=== PATIENT | female | born 1975 | race American Indian/Alaskan Native ===

== ENCOUNTER 2017-05-07 19:46 | Emergency (ER) | payer OTHER ==
--- NOTE | 2017-05-07 20:13 | EDM.PDOC ---
ED HPI GENERAL MEDICAL PROBLEM - General Chief Complaint: Chest Pain Stated Complaint: CHEST PAINS, [id number] Time Seen by Provider: 05/07/17 20:10 Source of Information: Reports: Patient History Limitations: Reports: No Limitations - History of Present Illness INITIAL COMMENTS - FREE TEXT/NARRATIVE: onset left CP with occ SOB ~ 1 week ago then went away then came back few days ago and not going away. described as feeling uncomfortable and something not right. Left Chest Pain Score (Numeric/FACES): 4 - Related Data Allergies Allergy/AdvReac Type Severity Reaction Status Date / Time latex Allergy Hives Verified 05/07/17 20:08 Home Meds: Home Meds . [No Known Home Meds] 08/22/14 [History] Past Medical History - Past Health History Medical/Surgical History: Denies Medical/Surgical History Other OB/BYN History: 4 CS Psychiatric History: Reports: Anxiety - Past Surgical History GI Surgical History: Reports: Hernia, Abdominal, Hernia Repair/Other Other GI Surgeries/Procedures: 2 hernia repair Social & Family History - Tobacco Use Smoking Status *Q: Current Some Day Smoker Years of Tobacco use: 10 Packs/Tins Daily: 1 Used Tobacco, but Quit: No Second Hand Smoke Exposure: Yes - Caffeine Use Caffeine Use: Reports: Coffee, Soda - Alcohol Use Days Per Week of Alcohol Use: 0 - Recreational Drug Use Recreational Drug Use: No - Living Situation & Occupation Living situation: Reports: with Family Occupation: Employed ED ROS GENERAL - Review of Systems Review Of Systems: ROS reveals no pertinent complaints other than HPI. ED EXAM, GENERAL - Physical Exam Exam: See Below Exam Limited By: No Limitations General Appearance: Alert, WD/WN, No Apparent Distress, Other (distraught) Ears: Hearing Grossly Normal Throat/Mouth: Normal Voice, No Airway Compromise Head: Atraumatic Neck: Non-Tender, Full Range of Motion Respiratory/Chest: No Respiratory Distress Cardiovascular: Regular Rate, Rhythm GI/Abdominal: Soft, Non-Tender Neurological: Alert, Oriented, Normal Cognition, Normal Gait, No Motor/Sensory Deficits Psychiatric: Flat Affect Skin Exam: Warm, Dry, Normal Color Lymphatic: No Adenopathy Course - Vital Signs Last Recorded V/S: Last Vital Signs Temp 36.3 C 05/07/17 21:29 Pulse 61 05/07/17 21:29 Resp 18 08/21/17 21:29 BP 119/71 05/07/17 21:29 Pulse Ox 100 05/07/17 21:29 - Orders/Labs/Meds Labs: Laboratory Tests 05/07/17 05/07/17 05/07/17 Range/Units 19:56 19:56 19:56 WBC 8.1 (5.0-10.0) 10^3/uL RBC 4.69 (4.2-5.4) 10^6/uL Hgb 14.0 (12.0-16.0) g/dL Hct 41.8 (37.0-47.0) % MCV 89.1 (80-100) fL MCH 29.9 (27.0-34.0) pg MCHC 33.5 (33.0-35.0) g/dL Plt Count 258 (150-450) 10^3/uL Neut % (Auto) 65.2 (42.2-75.2) % Lymph % (Auto) 26.6 (20.5-50.1) % [place] % (Auto) 6.6 (2-8) % Eos % (Auto) 1.2 (1.0-3.0) % Baso % (Auto) 0.4 (0.0-1.0) % D-Dimer, Quantitative 587 H (0-400) ng/mL Sodium 138 (135-145) mmol/L Potassium 3.6 (3.6-5.0) mmol/L Chloride 105 (101-111) mmol/L Carbon Dioxide 25.0 (21.0-31.0) mmol/L Anion Gap 11.6 BUN 11 (7-18) mg/dL Creatinine 0.7 (0.6-1.3) mg/dL Est Cr Clr Drug Dosing 100.01 mL/min Estimated GFR (MDRD) > 60 BUN/Creatinine Ratio 15.71 Glucose 104 (74-105) mg/dL Calcium 8.9 (8.4-10.2) mg/dl Total Bilirubin 0.7 (0.2-1.0) mg/dL AST 28 (10-42) IU/L ALT 40 (10-60) IU/L Alkaline Phosphatase 48 (42-121) IU/L Troponin I < 0.02 (0.00-0.02) ng/ml Total Protein 7.6 (6.7-8.2) g/dl Albumin 4.3 (3.2-5.5) g/dl Globulin 3.3 Albumin/Globulin Ratio 1.30 Meds: Medications Discontinued Medications Generic Name Dose Route Start Last Admin Trade Name Analilia PRN Reason Stop Dose Admin Iopamidol 100 ml 05/07/17 20:50 05/07/17 21:14 Isovue-370 (76%) IVPUSH 05/07/17 20:51 100 ml ONETIME ONE Administration - Re-Assessments/Exams Free Text/Narrative Re-Assessment/Exam: 05/07/17 22:42 results discussed with pt. Departure - Departure Time of Disposition: 22:42 Disposition: Home, Self-Care 01 Condition: Good Clinical Impression: Atypical chest pain Instructions: Nonspecific Chest Pain, [id number] Forms: ED Department Discharge Additional Instructions: 1) see clinic for SPIROMETRY or CHILD CARE ASSISTANT REFERRAL 2) recheck if ther is any changes or concerns
[2017-05-07 20:25] LABS: CHLORIDE,CL 105 mmol/L (101-111); SODIUM,NA 138 mmol/L (135-145)
[2017-05-07] MEDS ORDERED: Iopamidol 755 Mg/ML 100 ML Bottle IVPUSH ONE (20:50)
[2017-05-07 22:43] VITALS: BP 121/72
--- NOTE | 2017-05-08 12:11 | EKG ---
05/07/2017- [facility] [place] - EKG done on a 42-year-old female showing sinus rhythm, normal axis, heart rate of 70 beats per minute. No acute ST-T wave changes. [facility] /[id number]
== END 2017-05-07 22:55 | disposition home or self-care (01) ==
LOC: DL.ED 19:46
DX: R07.89 Other chest pain (principal); F17.210 Nicotine dependence, cigarettes, uncomplicated; Z91.040 Latex allergy status; Z98.890 Other specified postprocedural states
CPT/HCPCS: 36415; 71020; 71260; 80053; 84484; 85025; 85379; 93005; 99285; Q9967

== ENCOUNTER 2018-01-21 07:02 | Emergency (ER) | payer OTHER ==
--- NOTE | 2018-01-21 07:14 | EDM.PDOC ---
ED HPI GENERAL MEDICAL PROBLEM - General Chief Complaint: ENT Problem Stated Complaint: THROAT PAIN, BODY ACHES Time Seen by Provider: 01/21/18 07:10 Source of Information: Reports: Patient, RN, RN Notes Reviewed History Limitations: Reports: No Limitations - History of Present Illness INITIAL COMMENTS - FREE TEXT/NARRATIVE: Arrives from home by POV with c/o fever, chills, generalized body aches, sore throat, nasal drainage, and cough since 01/19/18. Denies abdominal pain , N/V/D/C, CP, wheezing, or urinary Sx's. No one else at home has been ill. Onset: Sudden Onset Date: 01/19/18 Duration: Constant Location: Reports: Chest, Generalized, Other (throat) Quality: Reports: Ache Severity: Moderate Improves with: Reports: None Worsens with: Reports: None Associated Symptoms: Reports: No Other Symptoms Throat Pain Score (Numeric/FACES): 8 - Related Data Allergies Allergy/AdvReac Type Severity Reaction Status Date / Time latex Allergy Hives Verified 05/07/17 20:08 Home Meds: Home Meds . [No Known Home Meds] 08/22/14 [History] Past Medical History - Past Health History Medical/Surgical History: Denies Medical/Surgical History Other OB/BYN History: 4 CS Psychiatric History: Reports: Anxiety Endocrine/Metabolic History: Reports: Obesity/BMI 30+ - Past Surgical History GI Surgical History: Reports: Hernia, Abdominal, Hernia Repair/Other Other GI Surgeries/Procedures: 2 hernia repair Social & Family History - Family History Family Medical History: Noncontributory - Tobacco Use Smoking Status *Q: Current Every Day Smoker Tobacco Use Within Last Twelve Months: Cigarettes Years of Tobacco use: 10 Packs/Tins Daily: 1 Used Tobacco, but Quit: No Second Hand Smoke Exposure: Yes - Caffeine Use Caffeine Use: Reports: Coffee, Soda - Alcohol Use Days Per Week of Alcohol Use: 0 - Recreational Drug Use Recreational Drug Use: No - Living Situation & Occupation Living situation: Reports: with Family Occupation: Employed ED ROS GENERAL - Review of Systems Review Of Systems: ROS reveals no pertinent complaints other than HPI. ED EXAM, GENERAL - Physical Exam Exam: See Below Exam Limited By: No Limitations General Appearance: Alert, WD/WN, No Apparent Distress, Other (acutely ill, but non-toxic appearing) Eye Exam: Bilateral Eye: Normal Inspection Ears: Normal External Exam, Normal Canal, Hearing Grossly Normal, Normal TMs Nose: No Blood, Nasal Drainage (mild-mod. clear-yellowish) Throat/Mouth: Normal Lips, Normal Teeth, Normal Voice, No Airway Compromise, Other (pharyngeal erythema) Head: Atraumatic, Normocephalic Neck: Full Range of Motion, Other ([place] cervical lymphadenopathy, no nuchal rigidity) Respiratory/Chest: No Respiratory Distress, No Accessory Muscle Use, Chest Non- Tender, Other (course cough). No: Rales, Rhonchi, Wheezing Cardiovascular: Regular Rate, Rhythm, No Edema GI/Abdominal: Normal Bowel Sounds, Soft, Non-Tender, No Distention, No Abnormal Bruit (Female) Exam: Deferred Rectal (Female) Exam: Deferred Back Exam: Normal Inspection, Full Range of Motion. No: CVA Tenderness (L), CVA Tenderness (R) Extremities: Normal Inspection, Normal Range of Motion, Non-Tender, Normal Capillary Refill, No Pedal Edema Neurological: Alert, Oriented, CN II-XII Intact, Normal Cognition, Normal Gait, No Motor/Sensory Deficits Psychiatric: Normal Affect, Normal Mood Skin Exam: Warm, Dry, Intact, Normal Color, No Rash Course - Vital Signs Last Recorded V/S: Last Vital Signs Temp 38.3 C H 01/21/18 07:21 Pulse 102 H 01/21/18 07:21 Resp 24 H 01/21/18 07:21 BP 144/97 H 01/21/18 07:21 Pulse Ox 100 01/21/18 07:21 - Orders/Labs/Meds Orders: Active Orders 24 hr Category Date Time Status CULTURE STREP A CONFIRMATION [] Stat Lab 01/21/18 07:18 Results STREP SCRN A RAPID W CULT CONF [] Stat Lab 01/21/18 07:18 Results Labs: Rapid Strep: negative Influenza A: negative Influenza B: POSITIVE Departure - Departure Time of Disposition: 07:47 Disposition: Home, Self-Care 01 Condition: Fair Clinical Impression: Influenza A - Discharge Information Instructions: Influenza, Adult Forms: ED Department Discharge Additional Instructions: Rx: Promethazine Codeine Syrup *Do not drive or work while under the influence of this medication. Rx: Prednisone 20mg *Take with food. Rest, drink plenty of water. Use over the counter Tylenol or Ibuprofen as needed for fevers or pain. Follow directions on package or label for dosing and precautions. Follow up in clinic if not improving in 7 to 10 days. Return to ER if any breathing difficulties develop. - My Orders Last 24 Hours: My Active Orders 01/21/18 07:18 CULTURE STREP A CONFIRMATION [RM] Stat STREP SCRN A RAPID W CULT CONF [RM] Stat - Assessment/Plan Last 24 Hours: My Active Orders 01/21/18 07:18 CULTURE STREP A CONFIRMATION [RM] Stat STREP SCRN A RAPID W CULT CONF [] Stat
[2018-01-21 07:22] VITALS: BP 144/97
[2018-01-21] MEDS ORDERED: Codeine/Promethazine 10-6.25 MG/5 ML Syrup 5 ML UD Cup PO ONE (07:51)
[2018-01-21] MEDS: predniSONE 20 MG Tab PO ONE ×2 (08:00→08:01)
== END 2018-01-21 08:10 | disposition home or self-care (01) ==
LOC: DL.ED 07:02
DX: J10.1 Influenza due to other identified influenza virus with other respiratory manifestations (principal); F17.210 Nicotine dependence, cigarettes, uncomplicated; Z91.040 Latex allergy status
CPT/HCPCS: 87081; 87430; 87804; 99283; A9270

== ENCOUNTER 2018-10-01 22:35 | Emergency (ER) | payer BC, OTHER ==
[2018-10-01 22:43] VITALS: BP 120/73
--- NOTE | 2018-10-01 22:56 | EDM.PDOC ---
ED HPI GENERAL MEDICAL PROBLEM - General Chief Complaint: Abdominal Pain Stated Complaint: LOWER RIGHT FLANK PAIN [id number] Time Seen by Provider: 10/01/18 22:40 Source of Information: Reports: Patient History Limitations: Reports: No Limitations - History of Present Illness INITIAL COMMENTS - FREE TEXT/NARRATIVE: Pain in lower abdomen, worse after eating at 2 pm described as sharp, early nausea, now current. No fever/ chills. Describes pain as crampy type. No radiation. 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 Psychiatric History: Reports: Anxiety Endocrine/Metabolic History: Reports: Obesity/BMI 30+ - Infectious Disease History Infectious Disease History: Reports: Herpes - Past Surgical History GI Surgical History: Reports: Cholecystectomy, Hernia, Abdominal, Hernia Repair/ Other Other GI Surgeries/Procedures: 2 hernia repair Female Surgical History: Reports: Section, Tubal Ligation Musculoskeletal Surgical History: Reports: Arthroscopic Knee Social & Family History - Family History Family Medical History: Noncontributory - Tobacco Use Smoking Status *Q: Current Every Day Smoker Years of Tobacco use: 5 Packs/Tins Daily: 0.1 Second Hand Smoke Exposure: Yes - Caffeine Use Caffeine Use: Reports: Coffee, Soda - Recreational Drug Use Recreational Drug Use: No - Living Situation & Occupation Living situation: Reports: with Family Occupation: Employed ED ROS GENERAL - Review of Systems Review Of Systems: See Below Constitutional: Denies: Fever, Chills, Malaise HEENT: Reports: No Symptoms Respiratory: Reports: No Symptoms Cardiovascular: Reports: No Symptoms GI/Abdominal: Reports: Abdominal Pain (right side sharp cramping), Decreased Appetite, Flatus, Nausea. Denies: Diarrhea, Vomiting : Reports: No Symptoms Musculoskeletal: Reports: No Symptoms Skin: Reports: No Symptoms Neurological: Reports: No Symptoms ED EXAM, GI/ABD - Physical Exam Exam: See Below Exam Limited By: No Limitations General Appearance: Alert, Anxious, Mild Distress Eyes: Bilateral: EOMI Ears: Normal External Exam Nose: Normal Inspection Throat/Mouth: Normal Inspection Head: Atraumatic, Normocephalic Neck: Normal Inspection Respiratory/Chest: No Respiratory Distress, Lungs Clear, Normal Breath Sounds Cardiovascular: Normal Peripheral Pulses, Regular Rate, Rhythm GI/Abdominal Exam: Soft, Tender (right mid lateral abdomen. no radiation, ), Abnormal Bowel Sounds (hyperactive). No: Distended, Guarding, Rebound, Mass, Hepatomegaly Course - Vital Signs Last Recorded V/S: Last Vital Signs Temp 98 F 10/01/18 22:38 Pulse 71 10/01/18 22:38 Resp 18 10/01/18 22:38 BP 120/73 10/01/18 22:38 Pulse Ox 100 10/01/18 22:38 - Orders/Labs/Meds Labs: Laboratory Tests 10/01/18 10/01/18 10/01/18 Range/Units 22:53 22:59 23:27 WBC 7.4 (5.0-10.0) 10^3/uL RBC 4.86 (4.2-5.4) 10^6/uL Hgb 14.6 (12.0-16.0) g/dL Hct 41.6 (37.0-47.0) % MCV 85.6 D (80-100) fL MCH 30.0 (27.0-34.0) pg MCHC 35.1 H (33.0-35.0) g/dL Plt Count 267 (150-450) 10^3/uL Neut % (Auto) 61.7 (42.2-75.2) % Lymph % (Auto) 29.7 (20.5-50.1) % [place] % (Auto) 6.9 (2-8) % Eos % (Auto) 1.3 (1.0-3.0) % Baso % (Auto) 0.4 (0.0-1.0) % Sodium 138 (135-145) mmol/L Potassium 3.4 L (3.6-5.0) mmol/L Chloride 107 (101-111) mmol/L Carbon Dioxide 23.0 (21.0-31.0) mmol/L Anion Gap 11.4 BUN 5 L (7-18) mg/dL Creatinine 0.8 (0.6-1.3) mg/dL Est Cr Clr Drug Dosing 86.63 mL/min Estimated GFR (MDRD) > 60 BUN/Creatinine Ratio 6.25 Glucose 89 (74-105) mg/dL Lactic Acid (0.5-2.2) mmol/L Calcium 8.6 (8.4-10.2) mg/dl Total Bilirubin 2.1 H (0.2-1.0) mg/dL AST 20 (10-42) IU/L ALT 23 (10-60) IU/L Alkaline Phosphatase 49 (42-121) IU/L Total Protein 7.0 (6.7-8.2) g/dl Albumin 4.0 (3.2-5.5) g/dl Globulin 3.0 Albumin/Globulin Ratio 1.33 Urine Color Yellow (YELLOW) Urine Appearance Clear (CLEAR) Urine pH 7.0 (5.0-9.0) Ur Specific [place] 1.020 (1.005-1.030) Urine Protein Negative (NEGATIVE) Urine Glucose (UA) Negative (NEGATIVE) Urine Ketones 15 H (NEGATIVE) Urine Occult Blood Negative (NEGATIVE) Urine Nitrite Negative (NEGATIVE) Urine Bilirubin Negative (NEGATIVE) Urine Urobilinogen 0.2 (0.2-1.0) mg/dL Ur Leukocyte Esterase Negative (NEGATIVE) 10/01/18 Range/Units 23:27 WBC (5.0-10.0) 10^3/uL RBC (4.2-5.4) 10^6/uL Hgb (12.0-16.0) g/dL Hct (37.0-47.0) % MCV (80-100) fL MCH (27.0-34.0) pg MCHC (33.0-35.0) g/dL Plt Count (150-450) 10^3/uL Neut % (Auto) (42.2-75.2) % Lymph % (Auto) (20.5-50.1) % [place] % (Auto) (2-8) % Eos % (Auto) (1.0-3.0) % Baso % (Auto) (0.0-1.0) % Sodium (135-145) mmol/L Potassium (3.6-5.0) mmol/L Chloride (101-111) mmol/L Carbon Dioxide (21.0-31.0) mmol/L Anion Gap BUN (7-18) mg/dL Creatinine (0.6-1.3) mg/dL Est Cr Clr Drug Dosing mL/min Estimated GFR (MDRD) BUN/Creatinine Ratio Glucose (74-105) mg/dL Lactic Acid 0.7 (0.5-2.2) mmol/L Calcium (8.4-10.2) mg/dl Total Bilirubin (0.2-1.0) mg/dL AST (10-42) IU/L ALT (10-60) IU/L Alkaline Phosphatase (42-121) IU/L Total Protein (6.7-8.2) g/dl Albumin (3.2-5.5) g/dl Globulin Albumin/Globulin Ratio Urine Color (YELLOW) Urine Appearance (CLEAR) Urine pH (5.0-9.0) Ur Specific [place] (1.005-1.030) Urine Protein (NEGATIVE) Urine Glucose (UA) (NEGATIVE) Urine Ketones (NEGATIVE) Urine Occult Blood (NEGATIVE) Urine Nitrite (NEGATIVE) Urine Bilirubin (NEGATIVE) Urine Urobilinogen (0.2-1.0) mg/dL Ur Leukocyte Esterase (NEGATIVE) - Radiology Interpretation Free Text/Narrative:: 2 view abdomen no acute process - Re-Assessments/Exams Free Text/Narrative Re-Assessment/Exam: 10/03/18 05:44 Exam lab findings reviewed with patient, pain resolving, passing flatus. Instructions reviewed with patient, to return if worsening symptoms, increased dpain or fever. Departure - Departure Time of Disposition: 00:16 Disposition: Home, Self-Care 01 Condition: Good Clinical Impression: Abdominal pain Qualifiers: Abdominal location: right lower quadrant Qualified Code(s): R10.31 - Right lower quadrant pain - Discharge Information *PRESCRIPTION DRUG MONITORING PROGRAM REVIEWED*: No *COPY OF PRESCRIPTION DRUG MONITORING REPORT IN PATIENT JORGE: Not Applicable Instructions: Constipation, Adult, [id number] Referrals: PCP,None [Primary Care Provider] - Forms: ED Department Discharge Additional Instructions: light bland diet limit dairy for 24 hours follow up fever, vomiting increase fruit, fiber in diet
[2018-10-01 23:52] LABS: ANION GAP 11.4; CHLORIDE,CL 107 mmol/L (101-111); SODIUM,NA 138 mmol/L (135-145)
== END 2018-10-02 00:25 | disposition home or self-care (01) ==
LOC: DL.ED 22:35
DX: R10.31 Right lower quadrant pain (principal); E66.9 Obesity, unspecified; F17.210 Nicotine dependence, cigarettes, uncomplicated; Z91.040 Latex allergy status; Z79.899 Other long term (current) drug therapy
CPT/HCPCS: 36415; 74019; 80053; 81003; 83605; 85025; 99284

== ENCOUNTER 2019-12-26 00:26 | Emergency (ER) | payer BC, OTHER ==
[2019-12-26 00:36] VITALS: BP 128/67; PULSE 91
--- NOTE | 2019-12-26 00:50 | EDM.PDOC ---
ED HPI GENERAL MEDICAL PROBLEM - General Chief Complaint: Lower Extremity Injury/Pain Stated Complaint: FELL AND HURT RIGHT ANKLE Time Seen by Provider: 12/26/19 00:40 Source of Information: Reports: Patient History Limitations: Reports: No Limitations - History of Present Illness INITIAL COMMENTS - FREE TEXT/NARRATIVE: This 44 yo female patient reports to the ED with right lateral ankle pain. The patient reports she stepped off some pallets in her yard and twisted her right ankle. The patient reports she has been icing the area, but has noticed increased swelling and pain in the area. The patient reports the incident happened at about 2300 last night. The patient has not take any Tylenol or ibuprofen at this time. The patient also reports she has had a sinus issues over the past week and has been seen in the Clinic for this issue. 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 Psychiatric History: Reports: Anxiety Endocrine/Metabolic History: Reports: Obesity/BMI 30+ - Infectious Disease History Infectious Disease History: Reports: Herpes - Past Surgical History GI Surgical History: Reports: Cholecystectomy, Hernia, Abdominal, Hernia Repair/ Other Other GI Surgeries/Procedures: 2 hernia repair Female Surgical History: Reports: Section, Tubal Ligation Musculoskeletal Surgical History: Reports: Arthroscopic Knee Social & Family History - Family History Family Medical History: Noncontributory - Tobacco Use Smoking Status *Q: Never Smoker Second Hand Smoke Exposure: No - Caffeine Use Caffeine Use: Reports: Coffee, Soda - Recreational Drug Use Recreational Drug Use: No - Living Situation & Occupation Living situation: Reports: with Family Occupation: Employed Review of Systems - Review of Systems Review Of Systems: Comprehensive ROS is negative, except as noted in HPI. ED EXAM, GENERAL - Physical Exam Exam: See Below Exam Limited By: No Limitations General Appearance: Alert, WD/WN, Mild Distress Eye Exam: Bilateral Eye: EOMI, Normal Inspection, PERRL Ears: Normal External Exam, Normal Canal, Hearing Grossly Normal, Normal TMs Nose: Normal Inspection, Normal Mucosa, No Blood Throat/Mouth: Normal Inspection Head: Atraumatic, Normocephalic Neck: Normal Inspection Respiratory/Chest: No Respiratory Distress, Lungs Clear, Normal Breath Sounds, No Accessory Muscle Use, Chest Non-Tender Cardiovascular: Normal Peripheral Pulses, Regular Rate, Rhythm, No Edema, No Gallop, No JVD, No Murmur, No Rub GI/Abdominal: Normal Bowel Sounds, Soft, Non-Tender, No Organomegaly, No Distention, No Abnormal Bruit, No Mass (Female) Exam: Deferred Rectal (Female) Exam: Deferred Extremities: No Pedal Edema, Normal Capillary Refill, Leg Pain (right lateral ankle pain and swelling) Neurological: Alert, Oriented, CN II-XII Intact, Normal Cognition, Normal Reflexes, No Motor/Sensory Deficits, Abnormal Gait (due to pain in right ankle the patient came in using her daughters crutches) Psychiatric: Normal Affect, Normal Mood Skin Exam: Warm, Dry, Intact, Normal Color, No Rash Lymphatic: No Adenopathy Course - Vital Signs Last Recorded V/S: Last Vital Signs Temp 36.4 C 12/26/19 00:34 Pulse 91 12/26/19 00:34 Resp 18 12/26/19 00:34 BP 128/67 12/26/19 00:34 Pulse Ox 100 12/26/19 00:34 - Orders/Labs/Meds Orders: Active Orders 24 hr Category Date Time Status Ankle Min 3V Rt [CR] Urgent Exams 12/26/19 00:39 Ordered Departure - Departure Time of Disposition: 01:18 Disposition: Home, Self-Care 01 Condition: Fair Clinical Impression: Right ankle strain Qualifiers: Encounter type: initial encounter Qualified Code(s): S96.911A - Strain of unspecified muscle and tendon at ankle and foot level, right foot, initial encounter - Discharge Information *PRESCRIPTION DRUG MONITORING PROGRAM REVIEWED*: Not Applicable *COPY OF PRESCRIPTION DRUG MONITORING REPORT IN PATIENT JORGE: Not Applicable Instructions: Crutch Use, Adult, [id number], Ankle Sprain, [id number] Forms: ED Department Discharge Care Plan Goals: The patient was advised of the examination and x-ray results during the visit. The patient was placed in an ankle support while in the ED. The patient was encouraged to rest, ice and elevate the extremity. The patient may take Tylenol or ibuprofen as directed for temporary symptom relief. If the patient has any additional symptoms or concerns, the patient should either return to the emergency department or visit his primary care facility. Sepsis Event Note - Evaluation Sepsis Screening Result: No Definite Risk - Focused Exam Vital Signs: Vital Signs Temp Pulse Resp BP Pulse Ox 12/26/19 00:34 36.4 C 91 18 128/67 100 Date Exam was Performed: 12/26/19 Time Exam was Performed: 01:12 - My Orders Last 24 Hours: My Active Orders 12/26/19 00:39 Ankle Min 3V Rt [CR] Urgent - Assessment/Plan Last 24 Hours: My Active Orders 12/26/19 00:39 Ankle Min 3V Rt [CR] Urgent
== END 2019-12-26 01:26 | disposition home or self-care (01) ==
LOC: DL.ED 00:26
DX: S96.911A Strain of unspecified muscle and tendon at ankle and foot level, right foot, initial encounter (principal); E66.9 Obesity, unspecified; Z68.34 Body mass index [BMI] 34.0-34.9, adult; Z91.040 Latex allergy status; X50.1XXA Overexertion from prolonged static or awkward postures, initial encounter
CPT/HCPCS: 73610-RT; 99283

== ENCOUNTER 2020-12-26 14:19 | Emergency (ER) | payer BC, OTHER ==
[2020-12-26] MEDS ORDERED: Cyclobenzaprine 10 MG Tab PO ONE (14:30)
[2020-12-26] MEDS ORDERED: Promethazine 25 MG Tab PO ONE (14:31)
[2020-12-26] MEDS ORDERED: Ketorolac 30 MG/ML SDV IM ONE (14:31)
[2020-12-26 14:34] VITALS: BP 118/80; PULSE 74
--- NOTE | 2020-12-26 14:55 | EDM.PDOC ---
Scribed by Funmi Elizabeth 12/26/20 [id number] for Juan Diego Michael MD ED HPI GENERAL MEDICAL PROBLEM - General Chief Complaint: Headache Stated Complaint: MIGRAINE Time Seen by Provider: 12/26/20 14:24 Source of Information: Reports: Patient, RN, RN Notes Reviewed History Limitations: Reports: No Limitations - History of Present Illness INITIAL COMMENTS - FREE TEXT/NARRATIVE: Patient presents to ED by POV complains of headache that began about 3 days. She has tightness and left posterior neck. She could not get relief from the neck pain and spasms and began to develop a posterior headache. The headache has now spread all over the head, but is worse on the left side. She admits to nausea but denies photophobia. No neck injury. No history of migraines. Denies visual changes. No radiating pain or motor deficits. Onset: Gradual Duration: Constant Location: Reports: Head, Neck Quality: Reports: Ache Severity: Severe Improves with: Reports: None Worsens with: Reports: None Associated Symptoms: Reports: No Other Symptoms Headache Pain Score (Numeric/FACES): 5 - Related Data Allergies Allergy/AdvReac Type Severity Reaction Status Date / Time latex Allergy Hives Verified 12/26/20 14:31 Home Meds: Home Meds Fexofenadine HCl [Cheryle Allergy] 60 mg PO DAILY 12/26/20 [History] Omeprazole 20 mg PO DAILY 12/26/20 [History] Past Medical History - Past Health History Medical/Surgical History: Denies Medical/Surgical History HEENT History: Reports: Impaired Vision 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 Psychiatric History: Reports: Anxiety Endocrine/Metabolic History: Reports: Obesity/BMI 30+ - Infectious Disease History Infectious Disease History: Reports: Herpes - Past Surgical History GI Surgical History: Reports: Cholecystectomy, Hernia, Abdominal, Hernia Repair/Other Other GI Surgeries/Procedures: 2 hernia repair Female Surgical History: Reports: Section, Tubal Ligation Musculoskeletal Surgical History: Reports: Arthroscopic Knee Social & Family History - Family History Family Medical History: No Pertinent Family History - Caffeine Use Caffeine Use: Reports: Coffee, Soda - Living Situation & Occupation Living situation: Reports: with Family Occupation: Employed ED ROS GENERAL - Review of Systems Review Of Systems: Comprehensive ROS is negative, except as noted in HPI. - Physical Exam Exam: See Below Exam Limited By: No Limitations General Appearance: Alert, WD/WN, No Apparent Distress Eye Exam: Bilateral Eye: EOMI, Normal Inspection, PERRL Nose: Normal Inspection, Normal Mucosa, No Blood Throat/Mouth: Normal Inspection, Normal Lips, Normal Teeth, Normal Gums, Normal Oropharynx, Normal Voice, No Airway Compromise Head Exam: Atraumatic, Normocephalic Neck: Supple, Full Range of Motion, Other (Paraspinal soft tissue tenderness with muscle spasms, left > Rt.). No: Lymphadenopathy (L), Lymphadenopathy (R) Respiratory/Chest: No Respiratory Distress, Lungs Clear, Chest Non-Tender Cardiovascular: Normal Peripheral Pulses, Regular Rate, Rhythm GI/Abdominal: Normal Bowel Sounds, Soft, Non-Tender Neuro Exam (Abbreviated): Alert, Oriented, CN II-XII Intact, Normal Cognition, Normal Gait, Normal Reflexes, No Motor/Sensory Deficits Back Exam: Normal Inspection Extremities: Normal Inspection Psychiatric: Normal Affect, Normal Mood Skin Exam: Warm, Dry, Intact, Normal Color, No Rash Course - Vital Signs Last Recorded V/S: Last Vital Signs Temp 98.0 F 12/26/20 14:32 Pulse 74 12/26/20 14:32 Resp 20 12/26/20 14:32 BP 118/80 12/26/20 14:32 Pulse Ox 99 12/26/20 14:32 - Orders/Labs/Meds Meds: Medications Discontinued Medications Generic Name Dose Route Start Last Admin Trade Name Parvizq PRN Reason Stop Dose Admin Cyclobenzaprine HCl 10 mg 12/26/20 14:30 12/26/20 14:46 Cyclobenzaprine 10 Mg Tab PO 12/26/20 14:31 10 mg ONETIME ONE Administration Ketorolac Tromethamine 60 mg 12/26/20 14:31 12/26/20 14:46 Ketorolac 30 Mg/Ml Sdv IM 12/26/20 14:32 60 mg ONETIME ONE Administration Promethazine HCl 25 mg 12/26/20 14:31 12/26/20 14:46 Promethazine 25 Mg Tab PO 12/26/20 14:32 25 mg ONETIME ONE Administration Departure - Departure Time of Disposition: 14:54 Disposition: Home, Self-Care 01 Condition: Good Clinical Impression: Tension-type headache, Muscle spasms of neck - Discharge Information *PRESCRIPTION DRUG MONITORING PROGRAM REVIEWED*: Not Applicable *COPY OF PRESCRIPTION DRUG MONITORING REPORT IN PATIENT JORGE: Not Applicable Instructions: Tension Headache, Adult, Muscle Cramps and Spasms Forms: ED Department Discharge Additional Instructions: Rx: Cyclobenzaprine 10mg Rx: Naprosyn 500mg Follow up in clinic if not improving in 1 to 2 days. Sepsis Event Note (ED) - Focused Exam Vital Signs: Vital Signs Temp Pulse Resp BP Pulse Ox 12/26/20 14:32 98.0 F 74 20 118/80 99 I have read and agree with the documentation that has been completed regarding this visit. By signing this record, I attest that the documentation was completed in my physical presence and is an accurate record of the encounter.
== END 2020-12-26 15:00 | disposition home or self-care (01) ==
LOC: DL.ED 14:19
DX: G44.209 Tension-type headache, unspecified, not intractable (principal); M62.830 Muscle spasm of back; E66.9 Obesity, unspecified; Z68.34 Body mass index [BMI] 34.0-34.9, adult; Z91.040 Latex allergy status
CPT/HCPCS: 96372; 99283; A9270; J1885

== ENCOUNTER 2021-05-20 17:27 | Emergency (ER) | payer BC, OTHER ==
[2021-05-20] MEDS ORDERED: Ondansetron 4 MG Tab.DIS PO ONE (17:28)
[2021-05-20] MEDS ORDERED: HYDROmorphone 1 MG/ML Syringe IVPUSH ONE (17:45)
[2021-05-20] MEDS ORDERED: Sodium Chloride 0.9% 1,000 ML IV ONE (17:45)
[2021-05-20] MEDS ORDERED: Ondansetron 4 MG/2 ML SDV IV ONE (17:45)
[2021-05-20] MEDS ORDERED: Iopamidol 612 MG/ML 100 ML Bottle IVPUSH ONE (17:47)
--- NOTE | 2021-05-20 17:55 | EDM.PDOC ---
<Alec Marie Margarita - Last Filed: 05/20/21 18:51> ED HPI GENERAL MEDICAL PROBLEM - General Chief Complaint: Abdominal Pain Stated Complaint: STOMACH PROBLEMS, SWOLLEN Time Seen by Provider: 05/20/21 17:44 Source of Information: Reports: Patient History Limitations: Reports: No Limitations - History of Present Illness INITIAL COMMENTS - FREE TEXT/NARRATIVE: 46 y/o F c/o bilateral lower abd pn and lower back pn that started last night. Pt states she had a hernia repair Sunday by Dr. Fried at [facility] in [place] with no initial complications. Pt states last night she developed sharp abd in her lower abd and in her lower back and rates it 10/10. She states since last night she has noticed her becoming more distended and painful. Pt has not had a bowel movement since Sunday and has not been passing gas. Normal urine output no blood. Is nauseated with the pain but has not vomited. Also reports redness and irritation to the Umbilical incision site as has been having hot and cold flashes. Denies vision prob, diaphoresis, cp, db, extremity pn. Hx of tubal ligation in 200. Was sent home with Rx Oxycodone and has been taking as prescribed. Onset Date: 05/19/21 Onset Time: 20:00 Duration: Hour(s): Location: Reports: Abdomen, Back Quality: Reports: Sharp Severity: Severe Improves with: Reports: None Worsens with: Reports: Movement Abdomen Pain Score (Numeric/FACES): 10 - Related Data Allergies Allergy/AdvReac Type Severity Reaction Status Date / Time latex Allergy Hives Verified 05/20/21 17:48 Home Meds: Home Meds Fexofenadine HCl [Cheryle Allergy] 60 mg PO DAILY 12/26/20 [History] Omeprazole 20 mg PO DAILY 12/26/20 [History] Acetaminophen 500 mg PO Q4HR PRN 05/20/21 [History] oxyCODONE 5 mg PO Q6HR PRN 05/20/21 [History] Past Medical History - Past Health History Medical/Surgical History: Denies Medical/Surgical History HEENT History: Reports: Impaired Vision Cardiovascular History: Reports: None Respiratory History: Reports: None 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 Neurological History: Reports: None Psychiatric History: Reports: Anxiety Endocrine/Metabolic History: Reports: Obesity/BMI 30+ Hematologic History: Reports: None Immunologic History: Reports: None Oncologic (Cancer) History: Reports: None Dermatologic History: Reports: None - Infectious Disease History Infectious Disease History: Reports: Herpes - Past Surgical History Head Surgeries/Procedures: Reports: None GI Surgical History: Reports: Cholecystectomy, Hernia, Abdominal, Hernia Repair/Other Other GI Surgeries/Procedures: 2 hernia repair Female Surgical History: Reports: Section, Tubal Ligation Musculoskeletal Surgical History: Reports: Arthroscopic Knee Social & Family History - Family History Family Medical History: No Pertinent Family History - Caffeine Use Caffeine Use: Reports: Coffee, Tea - Living Situation & Occupation Living situation: Reports: with Family Occupation: Employed ED ROS GENERAL - Review of Systems Review Of Systems: See Below ED EXAM, GI/ABD - Physical Exam Exam: See Below Exam Limited By: No Limitations General Appearance: Alert, Mild Distress Throat/Mouth: Normal Inspection, Normal Lips, Normal Teeth, Normal Gums, Normal Oropharynx, Normal Voice, No Airway Compromise Head: Atraumatic, Normocephalic Neck: Normal Inspection, Supple, Non-Tender, Full Range of Motion Respiratory/Chest: No Respiratory Distress, Lungs Clear, Normal Breath Sounds Cardiovascular: Normal Peripheral Pulses, Regular Rate, Rhythm GI/Abdominal Exam: Distended, Other (Abd distended and exquisitly tender to palpation, redness and swelling to the incision around the umbilicus. Hypoactive bowel sounds.) (Female) Exam: Deferred Rectal (Female) Exam: Deferred Back Exam: Normal Inspection, Full Range of Motion, NT Extremities: Normal Inspection, Normal Range of Motion, Non-Tender, No Pedal Edema, Normal Capillary Refill Neurological: Alert, Oriented, Normal Cognition Skin Exam: Warm, Dry, Intact (except for umbilical region) Course - Re-Assessments/Exams Free Text/Narrative Re-Assessment/Exam: 05/20/21 18:44 Care transferred to Dee Devine PA-C at shift change Departure - Departure Disposition: Home, Self-Care 01 Clinical Impression: Ileus following gastrointestinal surgery, Superficial skin infection - Discharge Information Instructions: Ileus Forms: ED Department Discharge Additional Instructions: keflex 500mg one three times daily liquid diet small amounts more frequently continue pain medication for severe pain, tylenol 500mg every 4 hours as needed for mild-moderate discomfort zofran 4mg ODT one every 4 hurs asneeded for nausea increase activity follow up sooner, increasing pain, vomiting or fever <NilsonYodit Manuel - Last Filed: 05/21/21 03:21> ED EXAM, GI/ABD - Physical Exam GI/Abdominal Exam: Tender, Other Skin Exam: Erythema (surrounding umbilicus), Increased Warmth (periumbilical). No: Normal Color Course - Vital Signs Last Recorded V/S: Last Vital Signs Temp 98 F 05/20/21 21:40 Pulse 71 05/20/21 21:40 Resp 18 05/20/21 21:40 BP 124/82 05/20/21 21:40 Pulse Ox 94 L 05/20/21 21:40 - Orders/Labs/Meds Orders: Active Orders 24 hr Category Date Time Status Peripheral IV Insertion Adult [OM.PC] Stat Oth 05/20/21 17:44 Ordered Labs: Laboratory Tests 05/20/21 05/20/21 05/20/21 Range/Units 17:50 17:50 17:56 WBC 9.8 (5.0-10.0) 10^3/uL RBC 4.97 (4.2-5.4) 10^6/uL Hgb 15.2 (12.0-16.0) g/dL Hct 44.9 (37.0-47.0) % MCV 90.3 D (80-100) fL MCH 30.6 (27.0-34.0) pg MCHC 33.9 (33.0-35.0) g/dL Plt Count 260 (150-450) 10^3/uL Neut % (Auto) 76.0 H (42.2-75.2) % Lymph % (Auto) 13.6 L (20.5-50.1) % [place] % (Auto) 8.6 H (2-8) % Eos % (Auto) 1.6 (1.0-3.0) % Baso % (Auto) 0.2 (0.0-1.0) % Sodium (136-145) mmol/L Potassium (3.5-5.1) mmol/L Chloride (98-107) mmol/L Carbon Dioxide (21-32) mmol/L Anion Gap (7-13) mEq/L BUN (7-18) mg/dL Creatinine (0.55-1.02) mg/dL Est Cr Clr Drug Dosing Estimated GFR (MDRD) BUN/Creatinine Ratio (No establ ref range) Glucose (70-99) mg/dL Lactic Acid (0.4-2.0) mmol/L Calcium (8.5-10.1) mg/dL Total Bilirubin (0.2-1.0) mg/dL AST (15-37) U/L ALT (14-59) U/L Alkaline Phosphatase (46-116) U/L Total Protein (6.4-8.2) g/dL Albumin (3.4-5.0) g/dL Globulin Albumin/Globulin Ratio Amylase (25-115) U/L Urine Color Yellow (YELLOW) Urine Appearance Clear (CLEAR) Urine pH 6.5 (5.0-9.0) Ur Specific [place]ove 1.020 (1.005-1.030) Urine Protein Negative (NEGATIVE) Urine Glucose (UA) Negative (NEGATIVE) Urine Ketones 80 H (NEGATIVE) Urine Occult Blood Negative (NEGATIVE) Urine Nitrite Negative (NEGATIVE) Urine Bilirubin Negative (NEGATIVE) Urine Urobilinogen 0.2 (0.2-1.0) mg/dL Ur Leukocyte Esterase Negative (NEGATIVE) Urine HCG, Qual Negative 05/20/21 05/20/21 Range/Units 17:56 17:56 WBC (5.0-10.0) 10^3/uL RBC (4.2-5.4) 10^6/uL Hgb (12.0-16.0) g/dL Hct (37.0-47.0) % MCV (80-100) fL MCH (27.0-34.0) pg MCHC (33.0-35.0) g/dL Plt Count (150-450) 10^3/uL Neut % (Auto) (42.2-75.2) % Lymph % (Auto) (20.5-50.1) % [place] % (Auto) (2-8) % Eos % (Auto) (1.0-3.0) % Baso % (Auto) (0.0-1.0) % Sodium 139 (136-145) mmol/L Potassium 3.5 (3.5-5.1) mmol/L Chloride 102 (98-107) mmol/L Carbon Dioxide 28 (21-32) mmol/L Anion Gap 12.5 (7-13) mEq/L BUN 5 L (7-18) mg/dL Creatinine 0.80 (0.55-1.02) mg/dL Est Cr Clr Drug Dosing TNP Estimated GFR (MDRD) > 60 BUN/Creatinine Ratio 6.3 (No establ ref range) Glucose 90 (70-99) mg/dL Lactic Acid 0.7 (0.4-2.0) mmol/L Calcium 8.8 (8.5-10.1) mg/dL Total Bilirubin 1.8 H (0.2-1.0) mg/dL AST 28 (15-37) U/L ALT 63 H (14-59) U/L Alkaline Phosphatase 69 (46-116) U/L Total Protein 7.5 (6.4-8.2) g/dL Albumin 3.6 (3.4-5.0) g/dL Globulin 3.9 Albumin/Globulin Ratio 0.9 Amylase 34 (25-115) U/L Urine Color (YELLOW) Urine Appearance (CLEAR) Urine pH (5.0-9.0) Ur Specific [place] (1.005-1.030) Urine Protein (NEGATIVE) Urine Glucose (UA) (NEGATIVE) Urine Ketones (NEGATIVE) Urine Occult Blood (NEGATIVE) Urine Nitrite (NEGATIVE) Urine Bilirubin (NEGATIVE) Urine Urobilinogen (0.2-1.0) mg/dL Ur Leukocyte Esterase (NEGATIVE) Urine HCG, Qual Meds: Medications Discontinued Medications Generic Name Dose Route Start Last Admin Trade Name Parvizq PRN Reason Stop Dose Admin Hydrocodone Bitart/Acetaminophen 1 tab 05/20/21 21:53 05/20/21 21:58 Acetaminophen/Hydrocodone 325-10 Mg Tab PO 05/20/21 21:54 1 tab ONETIME ONE Administration Cephalexin Confirm 05/20/21 22:30 Cephalexin 500 Mg Cap Administered 05/20/21 22:31 Dose 500 mg .ROUTE .STK-MED ONE Hydromorphone HCl 1 mg 05/20/21 17:45 05/20/21 18:04 Hydromorphone 1 Mg/Ml Syringe IVPUSH 05/20/21 17:46 1 mg ONETIME ONE Administration Sodium Chloride 1,000 mls @ 999 mls/hr 05/20/21 17:45 05/20/21 18:02 Normal Saline IV 05/20/21 18:45 999 mls/hr .BOLUS ONE Administration Vancomycin HCl 1,250 mg/ 250 mls @ 166.667 mls/hr 05/20/21 19:45 05/20/21 20 :00 Sodium Chloride IV 05/20/21 21:14 166.667 mls/hr ONETIME ONE Administration Iopamidol 100 ml 05/20/21 17:47 05/20/21 17:56 Iopamidol 612 Mg/Ml 100 Ml Bottle IVPUSH 05/20/21 17:48 100 ml ONETIME ONE Administration Ketorolac Tromethamine 30 mg 05/20/21 21:53 05/20/21 21:58 Ketorolac 30 Mg/Ml Sdv IVPUSH 05/20/21 21:54 30 mg ONETIME ONE Administration Metoclopramide HCl 10 mg 05/20/21 21:54 05/20/21 22:00 Metoclopramide 10 Mg/2 Ml Sdv IVPUSH 05/20/21 21:55 10 mg ONETIME ONE Administration Ondansetron HCl 4 mg 05/20/21 17:45 05/20/21 18:03 Ondansetron 4 Mg/2 Ml Sdv IV 05/20/21 17:46 4 mg ONETIME ONE Administration Ondansetron HCl Confirm 05/20/21 22:30 Ondansetron 4 Mg Tab.Dis Administered 05/20/21 22:31 Dose 12 mg .ROUTE .STK-MED ONE Promethazine HCl 25 mg 05/20/21 19:03 05/20/21 19:16 Promethazine 25 Mg/Ml Sdv IM 05/20/21 19:04 25 mg ONETIME ONE Administration Sodium Chloride 10 ml 05/20/21 17:45 05/20/21 22:00 Sodium Chloride 0.9% 10 Ml Syringe FLUSH 10 ml ASDIRECTED PRN Administration Keep Vein Open - Re-Assessments/Exams Free Text/Narrative Re-Assessment/Exam: 05/20/21 20:39 Nausea improved following Phenergan, Light dozing. IV Vancomycin infusing. 05/20/21 21:[address] Ghotra, [facility] surgery. CT reviewed. Recommendation liquid diet, nausea control, keflex , follow up with Dr Fried on Sunday Departure - Departure Time of Disposition: 22:37 Condition: Good - Discharge Information *PRESCRIPTION DRUG MONITORING PROGRAM REVIEWED*: No *COPY OF PRESCRIPTION DRUG MONITORING REPORT IN PATIENT JORGE: No Sepsis Event Note (ED) - Focused Exam Vital Signs: Vital Signs Temp Pulse Resp BP Pulse Ox 05/20/21 21:40 98 F 71 18 124/82 94 L 05/20/21 20:02 98.1 F 71 18 117/82 92 L 05/20/21 17:40 98.0 F 74 20 101/81 97
[2021-05-20 18:21] LABS: ANION GAP 12.5 mEq/L (7-13); CHLORIDE,CL 102 mmol/L (98-107); SODIUM,NA 139 mmol/L (136-145)
[2021-05-20] MEDS ORDERED: Promethazine 25 MG/ML SDV IM ONE (19:03)
--- NOTE | 2021-05-20 19:12 | CT ---
PROCEDURE INFORMATION: Exam: CT Abdomen And Pelvis With Contrast Exam date and time: 05/20/2021 6:27 PM Age: 46 years old Clinical indication: Bloating; Prior surgery; Surgery date: 3-7 days post-operative; Surgery type: Umbilical hernia repair on Sunday; Additional info: Abdominal pain/distention post-op, suspect sbo TECHNIQUE: Imaging protocol: Computed tomography of the abdomen and pelvis with contrast. Radiation optimization: All CT scans at this facility use at least one of these dose optimization techniques: automated exposure control; mA and/or kV adjustment per patient size (includes targeted exams where dose is matched to clinical indication); or iterative reconstruction. Contrast material: [id number]; Contrast volume: 75 ml; Contrast route: INTRAVENOUS (IV); COMPARISON: No relevant prior studies available. FINDINGS: Lungs: Bibasilar atelectasis. Liver: Normal. No mass. Gallbladder and bile ducts: There has been a cholecystectomy. Pancreas: Normal. No ductal dilation. Spleen: Normal. No splenomegaly. Adrenal glands: Normal. No mass. Kidneys and ureters: Normal. No hydronephrosis. Stomach and bowel: Mild dilatation of the transverse colon without obstructing etiology. Finding may indicate an ileus or air-fluid lock syndrome post surgery. Appendix: No evidence of appendicitis. Intraperitoneal space: Unremarkable. No free air. No significant fluid collection. Vasculature: Unremarkable. No abdominal aortic aneurysm. Lymph nodes: Unremarkable. No enlarged lymph nodes. Urinary bladder: Unremarkable as visualized. Reproductive: See "Stomach and bowel" finding. Bones/joints: Unremarkable. No acute fracture. Soft tissues: Inflammatory changes demonstrated in the anterior peritoneal cavity with small locules of gas as well as fluid and inflammation in the rectus muscles likely postsurgical. Gas locules in the anterior abdominal wall in the right lower quadrant likely postsurgical. IMPRESSION: 1. There has been a cholecystectomy. 2. Inflammatory changes demonstrated in the anterior peritoneal cavity with small locules of gas as well as fluid and inflammation in the rectus muscles likely postsurgical. 3. Mild dilatation of the transverse colon without obstructing etiology. Finding may indicate an ileus or air-fluid lock syndrome post surgery.
[2021-05-20] MEDS: Sodium Chloride 0.9% 10 ML Syringe FLUSH PRN ×2 (20:00→22:00)
[2021-05-20 20:02] VITALS: PULSE 71
[2021-05-20 21:41] VITALS: BP 124/82
[2021-05-20] MEDS ORDERED: Ketorolac 30 MG/ML SDV IVPUSH ONE (21:53)
[2021-05-20] MEDS ORDERED: Acetaminophen/HYDROcodone 325-10 MG Tab PO ONE (21:53)
[2021-05-20] MEDS ORDERED: Metoclopramide 10 MG/2 ML SDV IVPUSH ONE (21:54)
[2021-05-20] MEDS ORDERED: Ondansetron 4 MG Tab.DIS ONE (22:30)
[2021-05-20] MEDS ORDERED: Cephalexin 500 MG Cap ONE (22:30)
== END 2021-05-20 22:53 | disposition home or self-care (01) ==
LOC: DL.ED 17:27
DX: T81.40XA Infection following a procedure, unspecified, initial encounter (principal); K56.7 Ileus, unspecified; E66.9 Obesity, unspecified; Z68.30 Body mass index [BMI] 30.0-30.9, adult; Z79.899 Other long term (current) drug therapy; Z91.040 Latex allergy status
CPT/HCPCS: 36415; 74177; 80053; 81003; 81025; 82150; 83605; 85025; 96365; 96372; 96375; 99284-25; A9270-GY; J1170; J1885; J2405; J2550; J2765; J3370; J7030; J7050; Q9967

== ENCOUNTER 2021-07-30 19:46 | Emergency (ER) | payer BC, OTHER ==
[2021-07-30 19:58] VITALS: BP 136/88; PULSE 83
--- NOTE | 2021-07-30 20:02 | EDM.PDOC ---
ED HPI GENERAL MEDICAL PROBLEM - General Chief Complaint: Abdominal Pain Stated Complaint: LOWER ABDOMINAL PAIN Time Seen by Provider: 07/30/21 20:02 Source of Information: Reports: Patient, RN, RN Notes Reviewed History Limitations: Reports: No Limitations - History of Present Illness INITIAL COMMENTS - FREE TEXT/NARRATIVE: Patient is a 46-year-old female who presents to the ER with complaint of recurrent genital herpes, and endometrial pain. Patient states these are ongoing problems for her and she just does not have any meds right now to cover them. Patient states she rates the endometrial pain a 1/10 for which she has been using Tylenol and ibuprofen. Patient states when she has a flareup of genital herpes she also generally gets a yeast infection. Patient declines medical exam or laboratory work-up. Onset: Gradual Right Lower Abdomen Pain Score (Numeric/FACES): 1 - Related Data Allergies Allergy/AdvReac Type Severity Reaction Status Date / Time latex Allergy Hives Verified 07/30/21 19:53 Home Meds: Home Meds Fexofenadine HCl [Cheryle Allergy] 60 mg PO DAILY 12/26/20 [History] Omeprazole 20 mg PO DAILY 12/26/20 [History] Acetaminophen 500 mg PO Q4HR PRN 05/20/21 [History] oxyCODONE 5 mg PO Q6HR PRN 05/20/21 [History] Past Medical History - Past Health History Medical/Surgical History: Denies Medical/Surgical History HEENT History: Reports: Impaired Vision Cardiovascular History: Reports: None Respiratory History: Reports: None 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 Neurological History: Reports: None Psychiatric History: Reports: Anxiety Endocrine/Metabolic History: Reports: Obesity/BMI 30+ Hematologic History: Reports: None Immunologic History: Reports: None Oncologic (Cancer) History: Reports: None Dermatologic History: Reports: None - Infectious Disease History Infectious Disease History: Reports: Herpes - Past Surgical History Head Surgeries/Procedures: Reports: None GI Surgical History: Reports: Cholecystectomy, Hernia, Abdominal, Hernia Repair/Other Other GI Surgeries/Procedures: 2 hernia repair Female Surgical History: Reports: Section, Tubal Ligation Musculoskeletal Surgical History: Reports: Arthroscopic Knee Social & Family History - Family History Family Medical History: No Pertinent Family History - Tobacco Use Tobacco Use Status *Q: Current Every Day Tobacco User Years of Tobacco use: 10 Packs/Tins Daily: 0.2 - Caffeine Use Caffeine Use: Reports: Coffee, Tea - Recreational Drug Use Recreational Drug Use: No - Living Situation & Occupation Living situation: Reports: with Family Occupation: Employed ED ROS GENERAL - Review of Systems Review Of Systems: Comprehensive ROS is negative, except as noted in HPI. ED EXAM, GI/ABD - Physical Exam Exam: See Below Exam Limited By: No Limitations General Appearance: Alert, WD/WN, No Apparent Distress Eyes: Bilateral: Normal Appearance, EOMI Ears: Normal External Exam, Hearing Grossly Normal Nose: Normal Inspection Throat/Mouth: Normal Inspection, Normal Voice, No Airway Compromise Head: Atraumatic, Normocephalic Neck: Normal Inspection, Full Range of Motion Respiratory/Chest: No Respiratory Distress, Lungs Clear, Normal Breath Sounds, No Accessory Muscle Use, Chest Non-Tender Cardiovascular: Normal Peripheral Pulses, Regular Rate, Rhythm, No Edema, No Gallop, No JVD, No Murmur, No Rub GI/Abdominal Exam: Normal Bowel Sounds, Soft, Non-Tender (Female) Exam: Deferred Rectal (Female) Exam: Deferred Back Exam: Normal Inspection, Full Range of Motion, NT Extremities: Normal Inspection, Normal Range of Motion, Non-Tender, Normal Capillary Refill, No Pedal Edema Neurological: Alert, Oriented, Normal Cognition, Normal Gait Psychiatric: Normal Affect, Normal Mood Skin Exam: Warm, Dry, Intact, Normal Color, No Rash Lymphatic: No Adenopathy Course - Vital Signs Last Recorded V/S: Last Vital Signs Temp 98.5 F 07/30/21 19:53 Pulse 83 07/30/21 19:53 Resp 20 07/30/21 19:53 BP 136/88 07/30/21 19:53 Pulse Ox 96 07/30/21 19:53 - Orders/Labs/Meds Orders: Active Orders 24 hr Category Date Time Status Fluconazole [Diflucan] Med 07/31/21 20:09 Once 100 mg PO DAILY ONE Medication Orders Fluconazole (Fluconazole 100 Mg Tab) 100 mg PO DAILY ONE Stop: 07/31/21 20:10 Meds: Medications Generic Name Dose Route Start Last Admin Trade Name Freq PRN Reason Stop Dose Admin Fluconazole 100 mg 07/31/21 20:09 Fluconazole 100 Mg Tab PO 07/31/21 20:10 DAILY ONE Discontinued Medications Generic Name Dose Route Start Last Admin Trade Name Freq PRN Reason Stop Dose Admin Famciclovir 1,000 mg 07/30/21 20:10 Famciclovir 500 Mg Tab PO 07/30/21 20:11 ONETIME ONE - Re-Assessments/Exams Free Text/Narrative Re-Assessment/Exam: 07/30/21 20:16 Patient declines vaginal/perineal exam, as well as laboratory. Patient states she knows her symptoms and wanted to get medications before the symptoms got severe. Departure - Departure Time of Disposition: 20:16 Disposition: Home, Self-Care 01 Condition: Good Clinical Impression: Endometriosis, Yeast infection Genital herpes Qualifiers: Herpes simplex infection site: unspecified Qualified Code(s): A60.00 - Herpesviral infection of urogenital system, unspecified - Discharge Information *PRESCRIPTION DRUG MONITORING PROGRAM REVIEWED*: No *COPY OF PRESCRIPTION DRUG MONITORING REPORT IN PATIENT JORGE: No Instructions: Vaginal Yeast Infection, Adult, Abdominal Pain, Adult, [id number], Endometriosis, Herpetic Merry Forms: ED Department Discharge Additional Instructions: Rx: Diflucan 150 mg on August 02 Rx: Famciclovir 1000 mg twice daily for 2 days Follow-up with your primary care provider Return to the ER with any worsening of symptoms Sepsis Event Note (ED) - Evaluation Sepsis Screening Result: No Definite Risk - Focused Exam Vital Signs: Vital Signs Temp Pulse Resp BP Pulse Ox 07/30/21 19:53 98.5 F 83 20 136/88 96 - My Orders Last 24 Hours: My Active Orders 07/31/21 20:09 Fluconazole [Diflucan] 100 mg PO DAILY ONE - Assessment/Plan Last 24 Hours: My Active Orders 07/31/21 20:09 Fluconazole [Diflucan] 100 mg PO DAILY ONE
[2021-07-30] MEDS ORDERED: Fluconazole 100 MG Tab PO ONE (20:20)
[2021-07-31] MEDS ORDERED: Fluconazole 100 MG Tab PO ONE (20:09)
== END 2021-07-30 20:24 | disposition home or self-care (01) ==
LOC: DL.ED 19:46
DX: A60.00 Herpesviral infection of urogenital system, unspecified (principal); N80.6 Endometriosis in cutaneous scar; B37.2 Candidiasis of skin and nail; E66.9 Obesity, unspecified; Z68.30 Body mass index [BMI] 30.0-30.9, adult; Z91.040 Latex allergy status; Z79.899 Other long term (current) drug therapy; Z72.0 Tobacco use
CPT/HCPCS: 99283; A9270

== ENCOUNTER 2022-07-27 23:22 | Emergency (ER) | payer BC, OTHER ==
[2022-07-28 00:12] LABS: ANION GAP 12.6 mEq/L (7-13)
[2022-07-28 00:32] LABS: CORONAVIRUS COVID-19 NAA NEGATIVE (NEGATIVE)
[2022-07-28 00:47] VITALS: BP 126/78; PULSE 83
== END 2022-07-28 00:42 | disposition home or self-care (01) ==
LOC: DL.ED 23:22
DX: J06.9 Acute upper respiratory infection, unspecified (principal); E66.9 Obesity, unspecified; Z68.31 Body mass index [BMI] 31.0-31.9, adult; Z79.899 Other long term (current) drug therapy; Z91.040 Latex allergy status; Z90.49 Acquired absence of other specified parts of digestive tract; Z20.822 Contact with and (suspected) exposure to COVID-19
CPT/HCPCS: 0240U; 36415; 71046; 80053; 83605; 85025; 87040; 99283

== ENCOUNTER 2024-06-18 01:28 | Emergency (ER) | payer BC, OTHER ==
[2024-06-18 01:49] VITALS: BP 128/90; PULSE 83
[2024-06-18] MEDS: Sodium Chloride 0.9% 1,000 ML IV ONE (02:24)
[2024-06-18 02:27] LABS: BASOPHILS PERCENT AUTO 0.4 % (0.0-1.0); EOSINOPHILS PERCENT AUTO 0.4 % (1.0-3.0); HEMATOCRIT 44.6 % (37.0-47.0); LYMPHOCYTES PERCENT AUTO 14.9 % (20.5-50.1); MEAN CORPUSCULAR HEMOGLOBIN 30.4 pg (27.0-34.0); MEAN CORPUSCULAR HGB CONC 33.6 g/dL (33.0-35.0); MEAN CORPUSCULAR VOLUME 90.5 fL (80-100); MONOCYTES PERCENT AUTO 6.4 % (2-8); NEUTROPHILS PERCENT AUTO 77.9 % (42.2-75.2); PLATELET COUNT,PLT 278 10^3/uL (150-450); RED BLOOD CELL COUNT 4.93 10^6/uL (4.2-5.4); WHITE BLOOD CELL COUNT,WBC 9.4 10^3/uL (5.0-10.0)
[2024-06-18 02:47] LABS: BILIRUBIN,URINE NEGATIVE (NEGATIVE); COLOR,URINE YELLOW (YELLOW); GLUCOSE,URINE NEGATIVE (NEGATIVE); KETONES,URINE 40 (NEGATIVE); LEUKOCYTE ESTERASE,URINE NEGATIVE (NEGATIVE); NITRITE,URINE NEGATIVE (NEGATIVE); OCCULT BLOOD,URINE TRACE-INTACT (NEGATIVE); PH,URINE 5.5 (5.0-9.0); PROTEIN,URINE NEGATIVE (NEGATIVE); UROBILINOGEN,URINE 0.2 mg/dL (0.2-1.0)
[2024-06-18 02:50] LABS: ALBUMIN 3.7 g/dL (3.4-5.0); ANION GAP 13.4 mEq/L (7-13); BILIRUBIN TOTAL 1.3 mg/dL (0.2-1.0); BUN/CREATININE RATIO 12.8 (No establ ref range); CALCIUM 8.7 mg/dL (8.5-10.1); CREATININE 0.94 mg/dL (0.55-1.02); EST CRCL DRUG DOSING (CG) 69.26 mL/min; MAGNESIUM 1.8 mg/dL (1.8-2.4); POTASSIUM,K 3.4 mmol/L (3.5-5.1); PROTEIN TOTAL,TP 7.4 g/dL (6.4-8.2)
[2024-06-18 02:53] LABS: APPEARANCE,URINE TURBID (CLEAR)
[2024-06-18] MEDS: Potassium Chloride 10 MEQ Tab.ER PO ONE (03:04)
[2024-06-18 03:18] LABS: AMORPHOUS SEDIMENT,URINE FEW /HPF (NOT SEEN); BACTERIA,URINE MODERATE /HPF (0-FEW/HPF); EPITHELIAL CELLS,URINE MANY /HPF (NOT SEEN); MUCUS,URINE MODERATE /LPF (NOT SEEN); RBC,URINE 0-5 /HPF (0-5); WBC,URINE 0-5 /HPF (0-5/HPF)
[2024-06-18] MEDS: Ketorolac 30 MG/ML SDV IVPUSH ONE (04:12)
== END 2024-06-18 04:32 | disposition home or self-care (01) ==
LOC: DL.ED 01:28
DX: G43.909 Migraine, unspecified, not intractable, without status migrainosus (principal); E86.9 Volume depletion, unspecified; R20.2 Paresthesia of skin; F17.210 Nicotine dependence, cigarettes, uncomplicated; K21.9 Gastro-esophageal reflux disease without esophagitis; E66.9 Obesity, unspecified; Z68.33 Body mass index [BMI] 33.0-33.9, adult; Z86.16 Personal history of COVID-19; Z90.49 Acquired absence of other specified parts of digestive tract; Z79.899 Other long term (current) drug therapy; Z91.040 Latex allergy status
CPT/HCPCS: 36415; 70450; 72131; 80053; 81001; 83735; 85025; 96361; 96374; 99284; A9270; J1885; J7030

== ENCOUNTER 2024-11-14 22:40 | Emergency (ER) | payer BC, OTHER ==
[2024-11-15 00:07] VITALS: BP 119/94; PULSE 68
[2024-11-15 01:03] LABS: APPEARANCE,URINE CLEAR (CLEAR); BILIRUBIN,URINE NEGATIVE (NEGATIVE); COLOR,URINE YELLOW (YELLOW); GLUCOSE,URINE NEGATIVE (NEGATIVE); KETONES,URINE NEGATIVE (NEGATIVE); LEUKOCYTE ESTERASE,URINE NEGATIVE (NEGATIVE); NITRITE,URINE NEGATIVE (NEGATIVE); OCCULT BLOOD,URINE TRACE-INTACT (NEGATIVE); PROTEIN,URINE NEGATIVE (NEGATIVE); UROBILINOGEN,URINE 0.2 mg/dL (0.2-1.0)
[2024-11-15 01:27] LABS: BASOPHILS PERCENT AUTO 0.7 % (0.0-1.0); EOSINOPHILS PERCENT AUTO 1.8 % (1.0-3.0); HEMATOCRIT 43.7 % (37.0-47.0); LYMPHOCYTES PERCENT AUTO 33.6 % (20.5-50.1); MEAN CORPUSCULAR HEMOGLOBIN 31.1 pg (27.0-34.0); MEAN CORPUSCULAR HGB CONC 34.3 g/dL (33.0-35.0); MEAN CORPUSCULAR VOLUME 90.5 fL (80-100); MONOCYTES PERCENT AUTO 6.7 % (2-8); NEUTROPHILS PERCENT AUTO 57.2 % (42.2-75.2); PLATELET COUNT,PLT 291 10^3/uL (150-450); RED BLOOD CELL COUNT 4.83 10^6/uL (4.2-5.4); WHITE BLOOD CELL COUNT,WBC 8.4 10^3/uL (5.0-10.0)
[2024-11-15 01:36] LABS: BACTERIA,URINE MODERATE /HPF (0-FEW/HPF); EPITHELIAL CELLS,URINE MANY /HPF (NOT SEEN); WBC,URINE 0-5 /HPF (0-5/HPF)
[2024-11-15 01:43] LABS: A/G RATIO 1.1; ALBUMIN 3.8 g/dL (3.4-5.0); ANION GAP 12.9 mEq/L (7-13); BILIRUBIN TOTAL 0.7 mg/dL (0.2-1.0); BUN/CREATININE RATIO 14.1 (No establ ref range); CREATININE 0.92 mg/dL (0.55-1.02); EST CRCL DRUG DOSING (CG) 70.77 mL/min; MAGNESIUM 2.1 mg/dL (1.8-2.4); POTASSIUM,K 3.9 mmol/L (3.5-5.1); PROTEIN TOTAL,TP 7.3 g/dL (6.4-8.2)
[2024-11-15] MEDS ORDERED: Ondansetron 4 MG/2 ML SDV IVPUSH ONE (02:10)
== END 2024-11-15 02:00 | disposition left against medical advice (07) ==
LOC: DL.ED 22:40
DX: Z53.21 Procedure and treatment not carried out due to patient leaving prior to being seen by health care provider (principal)
CPT/HCPCS: 36415; 80053; 81001; 83735; 85025

== ENCOUNTER 2025-04-10 22:03 | Emergency (ER) | payer BC, OTHER ==
[2025-04-10] MEDS: Take Home: Acetaminophen/HYDROcodone 325-5 MG, 5 Tab Pack PO ONE (22:31)
[2025-04-10] MEDS: Acetaminophen/HYDROcodone 325-10 MG Tab PO ONE (22:31)
[2025-04-10 22:47] VITALS: BP 125/71; PULSE 75
== END 2025-04-10 22:44 | disposition home or self-care (01) ==
LOC: DL.ED 22:03
DX: M77.02 Medial epicondylitis, left elbow (principal); K21.9 Gastro-esophageal reflux disease without esophagitis; Z91.040 Latex allergy status; Z79.899 Other long term (current) drug therapy; Z86.16 Personal history of COVID-19
CPT/HCPCS: 73080; 99283; A9270; J7512

== ENCOUNTER 2025-06-06 14:19 | Emergency (ER) | payer BC, OTHER ==
[2025-06-06 14:41] LABS: APPEARANCE,URINE CLEAR (CLEAR); GLUCOSE,URINE NEGATIVE (NEGATIVE); OCCULT BLOOD,URINE TRACE-INTACT (NEGATIVE)
[2025-06-06 15:07] LABS: EPITHELIAL CELLS,URINE FEW /HPF (NOT SEEN)
[2025-06-06] MEDS: cefTRIAXone 1 GM, Lidocaine 1% 2.1 ML IM ONE (15:09)
[2025-06-06] MEDS: Take Home: Doxycycline 100 MG Cap, 4 Cap Pack PO ONE (15:10)
[2025-06-06 15:36] VITALS: BP 119/82; PULSE 72
[2025-06-10 12:46] LABS: C.TRACHOMATIS BY TMA Negative (Negative); M GENITALIUM Negative (Negative); M GENITALIUM SOURCE Urine; N.GONORRHOEAE BY TMA Negative (Negative)
== END 2025-06-06 15:37 | disposition home or self-care (01) ==
LOC: DL.ED 14:19
DX: N89.8 Other specified noninflammatory disorders of vagina (principal); K21.9 Gastro-esophageal reflux disease without esophagitis; Z91.040 Latex allergy status; Z79.899 Other long term (current) drug therapy; Z86.16 Personal history of COVID-19; Z90.49 Acquired absence of other specified parts of digestive tract
CPT/HCPCS: 81001; 81025; 87210; 87491; 87563; 87591; 96372; 99283; A9270; J0696; J2003